=== PATIENT | male | born 1960 | race Caucasian/White ===

== ENCOUNTER 2017-02-12 23:41 | Inpatient (IN) | payer BC ==
--- NOTE | ~2017-02-12 | CN ---
Consultation Report [facility] [address] [place]. [address] NAME: MARGARET GUTIERREZ : 62 STATUS : ADM Baudilio PAT#: [id number] AGE: 56 ADM/REG DATE : 02/13/17 MR#: [id number] REPORT SERV DATE: 02/15/17 DICTATED BY: DIEUDONNE DUBON DATE: 02/15/17 REPORT STATUS : Draft TRANSCRIBED BY: MODL DATE: 02/15/17 INFECTIOUS DISEASE CONSULTATION DATE OF CONSULTATION: REASON FOR REFERRAL: Evaluation and treatment of foot infection. HISTORY OF PRESENT ILLNESS: The patient is a 56-year-old male. He has a history of hypertension, diabetes mellitus, peripheral neuropathy, nonischemic cardiomyopathy, obstructive sleep apnea, atrial fibrillation and other arrhythmias. He has an AICD, he had a firing of it three days ago and came in and was admitted. He was seen by me a year ago with a cellulitis of the right third toe. I was able to express a small amount of fluid from that and culture it, but it only grew coagulase-negative staph and Enterococcus and was on antibiotics at that time. He was treated empirically, got better, but then worsened and was readmitted and treated with intravenous vancomycin, at which point it began to improve. He had no signs of underlying abscess or osteomyelitis. He went home and got two weeks of IV vancomycin and with that, it all resolved. He has hammertoes and has been evaluated by [facility], and plans were made to surgically repair those since that is felt to be the reason for the recurrent episodes of cellulitis. However, arrhythmias, firings of his AICD, and an episode of influenza have all caused that surgery to be delayed and he is now to have another ablation in [place] in two weeks. In the meantime, in the past few days, warmth and redness have begun to appear on the toe and spread back onto the foot as well as the second toe, hence this consult. He denies any recent trauma to it, but he is up walking on it in boots and is on his feet all day in his job, doing [employer] work for the [employer], [place]. PAST MEDICAL HISTORY: Otherwise, unremarkable. MEDICATIONS: As mentioned above. ALLERGIES: NO KNOWN ANTIMICROBIAL ALLERGIES. SOCIAL HISTORY: He is . Work as previously mentioned. Nonsmoker. No history of alcohol or substance abuse. FAMILY HISTORY: Noncontributory. PHYSICAL EXAMINATION: GENERAL: A nontoxic, adult male, in no acute distress. He is alert and oriented x3. VITAL SIGNS: His temperature here has been normal 98.3 at present with a pulse of 56, respirations 20, blood pressure 104/57, weight is 136 kg. HEENT: Sclerae clear. No oral lesions. NECK: Supple. Consultation Report [address] [address] NAME: MARGARET GUTIERREZ : 62 STATUS : ADM Baudilio PAT#: [id number] AGE: 56 ADM/REG DATE : 02/13/17 MR#: [id number] REPORT SERV DATE: 02/15/17 DICTATED BY: DIEUDONNE DUBON DATE: 02/15/17 REPORT STATUS : Draft TRANSCRIBED BY: KENIA DATE: 02/15/17 LUNGS: Clear. HEART: Regular rate and rhythm. ABDOMEN: Soft and nontender. Positive bowel sounds. EXTREMITIES: Without clubbing or cyanosis. His right foot shows a swollen third toe with calluses; on the distal end, a very misshapen nail. I was unable to express any drainage from it. There is mild redness on the adjacent toe medially, but nothing really on the foot. LABORATORY DATA: His white blood cell count when he came in was 11.5, hematocrit 42.8, platelets 203. BUN and creatinine 26 and 1.11.7 IMPRESSION: Recurrent infections of the toe, probably due to the anatomical malformations causing repeated trauma to it. I would be most concerned about staph or strep. RECOMMENDATIONS: 1. Begin intravenous vancomycin. 2. Get an x-ray of the foot. 3. Podiatry has been asked to see him by Dr. Diaz, I agree. 4. Finally, I will follow the patient with you. I appreciate very much your consulting on this patient. NIYA Dieudonne Dubon M.D. / [id number] CC: Nicki Richards Jr., M.D. David Wendt, M.D.
--- NOTE | ~2017-02-12 | DS ---
Discharge Summary [facility] [address] [place]. [address] NAME: MARGARET GUTIERREZ : 62 STATUS : DIS IN PAT#: [id number] AGE: 56 ADM/REG DATE : 02/13/17 MR#: [id number] REPORT SERV DATE: 02/26/17 DICTATED BY: CARLOS CANSECO JR. DATE: 02/25/17 REPORT STATUS : Draft TRANSCRIBED BY: KENIA DATE: 02/25/17 Data Collection from hospitalization DISCHARGE DIAGNOSIS(ES): 1. Sinus tachycardia secondary to hypokalemia. 2. Atrial fibrillation/flutter. 3. Diabetes mellitus. 4. Cardiomyopathy. 5. Obstructive sleep apnea. 6. Chronic kidney disease. 7. History of alpha-1 antitrypsin deficiency. 8. Psoriasis. 9. Obesity. 10.Diabetic retinopathy. 11.Hyperthyroidism. CONSULTATIONS: Bandar Ambrocio M.D. PROCEDURES PERFORMED: None. MEDICATIONS: Eliquis 5 mg twice a day, aspirin 81 mg daily, Bumex 1 mg twice a day, Coreg 25 mg at bedtime, cefadroxil 1 g twice a day, Klonopin 0.5 mg at bedtime, Tikosyn 250 mcg twice a day, Viibryd tab 100 mg twice a day, Pepcid 20 mg daily, Prozac 40 mg daily, NovoLog injection insulin as instructed, Tresiba 75 units subcutaneously at bedtime, Humalog as per sliding scale as instructed, Mag-Ox 400 mg twice a day, Glucophage 1000 mg twice a day, Klor Con 20 mEq four times a day, Crestor 20 mg at bedtime, and Entresto one tablet twice a day. CONDITION AT DISCHARGE: Stable. DISPOSITION: The patient was discharged home on an 1800-calorie low cholesterol, diabetic diet with activities as instructed. He would follow up with Dr. Len Diaz on 02/24/[address] Bandar Aguilera two to three weeks following discharge. HOSPITAL COURSE: This is a 56-year-old man who has a history of nonischemic cardiomyopathy and atrial dysrhythmia. He had an ICD placed for nonischemic cardiomyopathy and had never had a shock until the evening prior to this admission. He had been in his recliner chair when he slumped over and received a shock which proved to be secondary to ventricular tachycardia. He had more rapid ventricular tachycardia when he presented to the emergency room. He was found to be severely hypokalemic with a potassium of 2.7. This was being repleted. He had no further episodes of ventricular tachycardia since then. He also has a history of atrial dysrhythmia and had undergone two attempts at radiofrequency ablation by Dr. Len Diaz. Unfortunately, he continued to have admissions for persistent atrial fibrillation which was highly symptomatic and had required repeated cardioversion. He was scheduled to go to the [facility] in [place] to undergo radiofrequency ablation with Dr. Fito Pierson in the near future. He currently takes Tikosyn for control of his atrial fibrillation. He was admitted to the hospital at this time for further evaluation and treatment. Discharge Summary [address] [address] NAME: MARGARET GUTIERREZ : 62 STATUS : DIS IN PAT#: [id number] AGE: 56 ADM/REG DATE : 02/13/17 MR#: [id number] REPORT SERV DATE: 02/26/17 DICTATED BY: CARLOS CANSECO JR. DATE: 02/25/17 REPORT STATUS : Draft TRANSCRIBED BY: KENIA DATE: 02/25/17 Upon admission, telemetry revealed the patient to be in a sinus rhythm, currently with PVCs. He has severe hypokalemia. Potassium supplementation was given. The implantable cardioverter-defibrillator was functioning appropriately and was interrogated in the emergency room. Tikosyn was continued, anticoagulation was continued, as well as congestive heart failure medications. He has congestive heart failure secondary to dilated cardiomyopathy. He did not appear to be in any overt congestive heart failure at this point in time. On 02/14/2017, he had no ventricular tachycardia overnight. His lungs were clear. He had no edema. Potassium supplementation continued. Tikosyn was decreased. Augmentin was started. He does have a right toe infection. The wound nurse was scheduled to see the patient. On 02/15/2017, he was seen by Dr. Bandar Ambrocio for evaluation and treatment of the foot infection. He had seen the patient about a year previously with cellulitis of the right third toe, a small amount of fluid was able to be expressed from that and cultures had grown only coagulase-negative Staph and enterococcus. He had been on antibiotics at that time. He was treated empirically and got better but then worsened. He had been readmitted and treated with intravenous vancomycin, at which point, he began to improve. He had no sign of underlying abscess or osteomyelitis. He went home and received two weeks of IV vancomycin and this resolved. His belene had been evaluated by [facility] and plans were made to surgically repair that since it was felt to be the reason for the recurrent episodes of cellulitis. However, he had arrhythmias and firings of his AICD and an episode of influenza which had caused that surgery to be delayed. He was now to have another ablation in two weeks. In the meantime, over the past few days, prior to this admission. He had warmth and redness that began to appear on the toe and spread back onto the foot as well as the second toe. He denied any recent trauma to it. He is up walking on it in boots and is on his feet all day doing his job with [employer] work. On admission, his white count was 11.5. Creatinine level was 1.11. Intravenous vancomycin was started. X- ray of the foot was requested. The following day, he had no new symptoms. X-ray of the right foot showed minimal calcaneal spurs. There was minimal osteophyte formation and no evidence of acute right foot abnormality. Discharge planning was performed. He did have an episode of nonsustained ventricular tachycardia that morning. Potassium and magnesium supplementation were continued. Discharge planning continued. On 02/17/2017, he remained afebrile. Creatinine was 1.07. He said he felt fine and toe looks like it had improved. He still has mild cellulitis of the right third greater than fourth toe. Discharge instructions were given. Due to his improved and stable condition, he was discharged home with the above-stated instructions. Information collected by: Liudmila Coffey I submit the above information as my discharge summary. CRISTINE/KENIA Carlos Canseco Jr., M.D. / [id number] CC: Carlos Canseco Jr., M.D. Discharge Summary [address] [place]. [address] NAME: MARGARET GUTIERREZ : 62 STATUS : DIS IN PAT#: [id number] AGE: 56 ADM/REG DATE : 02/13/17 MR#: [id number] REPORT SERV DATE: 02/26/17 DICTATED BY: CARLOS CANSECO JR. DATE: 02/25/17 REPORT STATUS : Draft TRANSCRIBED BY: MODL DATE: 02/25/17 Len Fraser M.D. Bandar Ambrocio M.D.
--- NOTE | ~2017-02-12 | HP ---
History And Physical [facility] [address] [place]. [address] NAME: MARGARET GUTIERREZ : 62 STATUS : ADM Baudilio PAT#: [id number] AGE: 56 ADM/REG DATE : 02/13/17 MR#: [id number] REPORT SERV DATE: 02/13/17 DICTATED BY: NASIR ALBERTS DATE: 02/13/17 REPORT STATUS : Draft TRANSCRIBED BY: MODL DATE: 02/13/17 DATE OF ADMISSION: 02/13/2017 REASON FOR ADMISSION: This is a cardiology admission H and P. This is in regard to ICD with ICD shock for rapid VT. HISTORY OF PRESENT ILLNESS: Mr. Gutierrez is a pleasant 56-year-old gentleman with a history of a nonischemic cardiomyopathy and atrial dysrhythmias. He had an ICD placed for a nonischemic cardiomyopathy and had never had a shock until last evening. He was in his recliner chair. He slumped over and then received a shock, which proved to be secondary to ventricular tachycardia. He had more rapid ventricular tachycardia when he presented to the emergency room. The patient was found to be severely hypokalemic with a potassium of 2.7, and this is being repleted. He has had no further episodes of VT since then. The patient also has a history of atrial dysrhythmia and has undergone two attempts at radiofrequency ablation by Dr. Len Diaz. Unfortunately, he continues to have admissions for persistent atrial fibrillation, which is highly symptomatic and has required repeated cardioversions. The patient is scheduled to go to [facility], [place], to undergo radiofrequency ablation with Dr. Fito Pierson in the near future. He currently takes Tikosyn for control of his atrial fibrillation. PAST MEDICAL HISTORY: Includes: 1. History of atrial fibrillation that is persistent, requiring repeated cardioversions, status post two ablation attempts by Dr. Len Diaz, and the patient takes Tikosyn. He is scheduled to undergo another ablation in [place] in the near future. 2. Nonischemic cardiomyopathy, ejection fraction 30 to 35%, on appropriate medications. The patient has an ICD. 3. Recurrent problems with hypokalemia. 4. Diabetes mellitus. 5. Obstructive sleep apnea. 6. Chronic kidney disease. 7. Alpha-1 antitrypsin deficiency, followed by Dr. Artie Healy from Pulmonary. 8. Psoriasis. 9. Obesity. 10.Diabetic retinopathy. 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 CURRENT MEDICATIONS: Include Eliquis, aspirin, Bumex, carvedilol, clonazepam, Tikosyn 375 mcg p.o. b.i.d., Pepcid, Prozac, insulin, magnesium, metformin, potassium, Crestor, Entresto. FAMILY HISTORY: Noncontributory, negative for premature coronary disease. SOCIAL HISTORY: Negative tobacco or alcohol. REVIEW OF SYSTEMS: History And Physical [address] [address] NAME: MARGARET GUTIERREZ : 62 STATUS : ADM Baudilio PAT#: [id number] AGE: 56 ADM/REG DATE : 02/13/17 MR#: [id number] REPORT SERV DATE: 02/13/17 DICTATED BY: NASIR ALBERTS DATE: 02/13/17 REPORT STATUS : Draft TRANSCRIBED BY: MODKofi DATE: 02/13/17 As noted above. All other systems reviewed and negative. PHYSICAL EXAMINATION: VITAL SIGNS: Heart rate 72, blood pressure 130/70, respirations 16, GENERAL: Well developed, well nourished. HEENT: No icterus. Good dentition. NECK: Supple. No masses or thyromegaly LUNGS: Breathing comfortably. No rales or wheezes. COR: Normal S1, S2. No S3 or S4. No murmurs, clicks, rubs. No JVD ABD: Soft, nondistended, nontender, no hepatosplenomegaly. EXT: No clubbing, cyanosis or edema. Peripheral pulses 2+/=bilaterally. SKIN: Warm and dry. No visible lesions. MS: Chest wall without deformity, no obvious clavicular fractures. NEURO/PSYCH: Oriented X3. No anxiety or depression. IMAGING: EKG was performed while the patient had a run of ventricular tachycardia. I cannot determine the overall the EKG at this point. The telemetry shows the patient to be in sinus rhythm currently with PVCs. LABORATORY VALUES: Notable for severe hypokalemia, potassium 2.7. IMPRESSION: 1. The patient with ventricular tachycardia in the setting of hypokalemia. He also takes Tikosyn for atrial fibrillation. We will replete potassium. Recheck an EKG this morning, especially focusing on QT interval. Continue current medicines for now including the Tikosyn. Continue to monitor. Implantable cardioverter-defibrillator is functioning appropriately and was interrogated in the emergency room. 2. Atrial fibrillation. Continue Tikosyn. As mentioned, the patient is scheduled for ablation in [place] using the rotor mapping system. Continue anticoagulation. 3. Congestive heart failure secondary to dilated cardiomyopathy. Continue current medications. He does not appear to be in any overt congestive heart failure at this point in time. His BNP was only slightly greater than 100, and symptoms and exam do not seem to be consistent with congestive heart failure exacerbation. If the patient is doing well, potassium remains repleted, and no further arrhythmias, we will plan for discharge tomorrow. STACEY/KENIA Nasir Alberts M.D. / [id number]
[2017-02-12 23:32] LABS: BASOPHILS 0.5 %; BASOPHILS ABSOLUTE 0.06 10/3/uL (0.0-0.16); EOSINOPHILS ABSOLUTE 0.23 10/3/uL (0.0-0.53); ER CBC TAT 0 Hrs 05 Mins; HEMATOCRIT 42.8 % (40.0-51.0); HEMOGLOBIN 15.6 g/dL (13.6-17.8); IMMATURE GRANULOCYTES 0.3 %; IMMATURE GRANULOCYTES ABSOLUTE 0.04 10/3/uL (0.0-0.11); LYMPHOCYTES 17.9 %; LYMPHOCYTES ABSOLUTE 2.06 10/3/uL (0.67-4.30); MANUAL DIFF NO %; MEAN CORPUS HGB CONC 36.4 g/dL (32.0-36.0); MEAN CORPUSCULAR VOLUME 85.1 fL (80-100); MEAN PLATELET VOLUME 10.3 fL (9.2-13.0); MONOCYTES 8.9 %; MONOCYTES ABSOLUTE 1.03 10/3/uL (0.21-1.20); NEUTROPHILS 70.4 %; NEUTROPHILS ABSOLUTE 8.09 10/3/uL (2.02-8.40); PLATELET COUNT 203 10/3/uL (150-400); RBC DISTRIBUTION WIDTH 12.6 % (12.0-16.0); RED CELL COUNT 5.03 10/6/uL (4.7-6.1); WHITE BLOOD CELLS 11.5 10/3/uL (4.5-10.5)
[~2017-02-12 23:41] MED LIST: ACET500CAP PO; ADVAIR100 INH; ADVIL PO; ASA5GR PO; ASAB PO; BUM2 PO; CARD30 PO; CORDARONE PO; COREG12 PO; COREG25 PO; COUMADIN7.5 MG PO; COZ25 PO; CRESTOR20 MG PO; DEMA100 PO; DEMA10T PO; DEMA20 PO; DSS PO; DULERA 100 MCG/13 GM INH; ELIQUIS 5 MG TAB5 MG PO; GAS-X80 MG PO; GLUCOPHAGE1000 MG PO; GLUCOV5 PO; GLUCPH PO; HUMALOG SC; HUMULIN SC; JANTOVEN7.5 MG PO; K500 PO; KDUR20 PO; KLONO5 PO; KLOR-CON 1010 MEQ PO; KLOR-CON M2020 MEQ PO; L40 PO; LEVEMFLXPN SC; LEVEMIR SC; LIPITOR10 PO; LIPITOR20 PO; MAGOX4 PO; NOVOLOG SC; NOVOPEN SC; PACERONE100 MG PO; PCET PO; PEP20 PO; PROZAC PO; PROZAC40 MG PO; RAN500 PO; RYTHMOL SR225 MG PO; RYTHMOL225 MG PO; SACU1TAB7 PO; SEPTRA1 TAB PO; SPIRO25 PO; T PO; TAMBOCOR PO; TAPAZOLE10 MG PO; TIKOSYN 250 M250 MCG PO; TIKOSYN125 MCG OR; TIKOSYN250 MCG PO; TRESIBA FL100 UNIT/1 SC; TRESIBA FLEXTOUCH SC; VANCO1P IV; Z5 PO; [UNRECOGNIZED DRUG - MIXTURE] IV
[2017-02-12 23:43] LABS: INTERNATIONAL NORMAL RATI 1.1 UNITS (-); PARTIAL THROMBO TIME 34.3 SEC (22.5-37.2); PROTIME (NOT ORD) 14.5 SEC (12.0-14.5)
[2017-02-12 23:47] LABS: BUN (BLOOD UREA NITROGEN) 29 MG/DL (6-23); CALCIUM, SERUM 8.8 MG/DL (8.5-10.4); CHEST PAIN PROFILE TAT 0 Hrs 20 Mins; CHLORIDE, SERUM 94 MMOL/L (96-112); CO2 (CARBON DIOXIDE) 34 MMOL/L (24-34); CREATININE 1.25 MG/DL (0.70-1.30); GFR AFRICAN AMERICAN 75 ML/MIN (>=60); GFR NON AFRICAN AMERICAN 64 ML/MIN (>=60); GLUCOSE, SERUM 314 MG/DL (60-99); POTASSIUM, SERUM 2.7 MMOL/L (3.5-5.3); SODIUM, SERUM 139 MMOL/L (135-148); TROPONIN I 0.03 NG/ML (<0.05)
[2017-02-13] MEDS ORDERED: KDUR20 PO (02:30)
[2017-02-13] MEDS ORDERED: TIKOSYN125 MCG PO ×2 (02:31→03:48)
[2017-02-13] MEDS ORDERED: PROZAC40 MG PO ×2 (02:31→03:46)
[2017-02-13] MEDS ORDERED: COREG12 PO (02:31)
[2017-02-13] MEDS ORDERED: KLONO5 PO ×2 (02:32→03:49)
[2017-02-13] MEDS ORDERED: CRESTOR20 MG PO ×2 (02:32→03:49)
[2017-02-13] MEDS ORDERED: SACU1TAB7 PO ×2 (02:33→03:52)
[2017-02-13] MEDS ORDERED: ELIQUIS 5 MG TAB5 MG PO ×2 (02:33→03:53)
[2017-02-13] MEDS ORDERED: BUM1 PO ×2 (02:33→03:53)
[2017-02-13] MEDS ORDERED: GLUCOPHAGE1000 MG PO ×2 (02:34→03:54)
[2017-02-13] MEDS ORDERED: TRESIBA FL100 UNIT/1 SC (02:34)
[2017-02-13] MEDS ORDERED: HUMALOG SC ×2 (02:36→03:57)
[2017-02-13] MEDS ORDERED: PEPCID40 MG PO (02:44)
[2017-02-13] MEDS ORDERED: ASAB PO ×2 (02:44→03:59)
[2017-02-13] MEDS ORDERED: MAGOX4 PO ×2 (02:44→04:00)
[2017-02-13] MEDS ORDERED: KLOR-CON M2020 MEQ PO (03:42)
[2017-02-13] MEDS ORDERED: COREG25 PO (03:44)
[2017-02-13] MEDS ORDERED: FORTAMET1000 MG PO (03:54)
[2017-02-13] MEDS ORDERED: TRESIBA FL100 UNIT/1 SQ (03:56)
[2017-02-13] MEDS ORDERED: PEP20 PO (03:59)
[2017-02-13 08:35] LABS: CALCIUM, SERUM 9.2 MG/DL (8.5-10.4); CHLORIDE, SERUM 97 MMOL/L (96-112); CO2 (CARBON DIOXIDE) 34 MMOL/L (24-34); CREATININE 1.17 MG/DL (0.70-1.30); GFR AFRICAN AMERICAN 81 ML/MIN (>=60); GFR NON AFRICAN AMERICAN 70 ML/MIN (>=60); SODIUM, SERUM 139 MMOL/L (135-148)
[2017-02-13 08:36] LABS: BUN (BLOOD UREA NITROGEN) 24 MG/DL (6-23); GLUCOSE, SERUM 250 MG/DL (60-99); POTASSIUM, SERUM 2.9 MMOL/L (3.5-5.3)
[2017-02-13 11:57] LABS: BUN (BLOOD UREA NITROGEN) 22 MG/DL (6-23); CALCIUM, SERUM 9.4 MG/DL (8.5-10.4); CHLORIDE, SERUM 98 MMOL/L (96-112); CO2 (CARBON DIOXIDE) 33 MMOL/L (24-34); CREATININE 1.24 MG/DL (0.70-1.30); GFR AFRICAN AMERICAN 75 ML/MIN (>=60); GFR NON AFRICAN AMERICAN 65 ML/MIN (>=60); GLUCOSE, SERUM 280 MG/DL (60-99); POTASSIUM, SERUM 3.3 MMOL/L (3.5-5.3); SODIUM, SERUM 140 MMOL/L (135-148)
[2017-02-13 15:57] LABS: BUN (BLOOD UREA NITROGEN) 22 MG/DL (6-23); CHLORIDE, SERUM 95 MMOL/L (96-112); CO2 (CARBON DIOXIDE) 33 MMOL/L (24-34); CREATININE 1.28 MG/DL (0.70-1.30); GFR AFRICAN AMERICAN 73 ML/MIN (>=60); GFR NON AFRICAN AMERICAN 63 ML/MIN (>=60); GLUCOSE, SERUM 248 MG/DL (60-99); SODIUM, SERUM 138 MMOL/L (135-148)
[2017-02-13 15:59] LABS: POTASSIUM, SERUM 3.8 MMOL/L (3.5-5.3)
[2017-02-14 04:58] LABS: CALCIUM, SERUM 9.2 MG/DL (8.5-10.4); CHLORIDE, SERUM 94 MMOL/L (96-112); CO2 (CARBON DIOXIDE) 34 MMOL/L (24-34); CREATININE 1.22 MG/DL (0.70-1.30); GFR AFRICAN AMERICAN 77 ML/MIN (>=60); GFR NON AFRICAN AMERICAN 66 ML/MIN (>=60); SODIUM, SERUM 140 MMOL/L (135-148)
[2017-02-14 04:59] LABS: BUN (BLOOD UREA NITROGEN) 28 MG/DL (6-23); GLUCOSE, SERUM 156 MG/DL (60-99)
[2017-02-15 05:17] LABS: BUN (BLOOD UREA NITROGEN) 26 MG/DL (6-23); CALCIUM, SERUM 8.8 MG/DL (8.5-10.4); CHLORIDE, SERUM 99 MMOL/L (96-112); CO2 (CARBON DIOXIDE) 31 MMOL/L (24-34); CREATININE 1.11 MG/DL (0.70-1.30); GFR AFRICAN AMERICAN 86 ML/MIN (>=60); GFR NON AFRICAN AMERICAN 74 ML/MIN (>=60); GLUCOSE, SERUM 125 MG/DL (60-99); POTASSIUM, SERUM 3.2 MMOL/L (3.5-5.3); SODIUM, SERUM 140 MMOL/L (135-148)
[2017-02-16 04:34] LABS: BUN (BLOOD UREA NITROGEN) 22 MG/DL (6-23); CALCIUM, SERUM 8.5 MG/DL (8.5-10.4); CHLORIDE, SERUM 103 MMOL/L (96-112); CO2 (CARBON DIOXIDE) 30 MMOL/L (24-34); CREATININE 1.14 MG/DL (0.70-1.30); GFR AFRICAN AMERICAN 83 ML/MIN (>=60); GFR NON AFRICAN AMERICAN 72 ML/MIN (>=60); GLUCOSE, SERUM 138 MG/DL (60-99); POTASSIUM, SERUM 3.6 MMOL/L (3.5-5.3); SODIUM, SERUM 141 MMOL/L (135-148)
[2017-02-17 05:50] LABS: BUN (BLOOD UREA NITROGEN) 22 MG/DL (6-23); CALCIUM, SERUM 8.6 MG/DL (8.5-10.4); CHLORIDE, SERUM 106 MMOL/L (96-112); CO2 (CARBON DIOXIDE) 26 MMOL/L (24-34); CREATININE 1.07 MG/DL (0.70-1.30); GFR AFRICAN AMERICAN 90 ML/MIN (>=60); GFR NON AFRICAN AMERICAN 78 ML/MIN (>=60); GLUCOSE, SERUM 128 MG/DL (60-99); POTASSIUM, SERUM 4.2 MMOL/L (3.5-5.3); SODIUM, SERUM 141 MMOL/L (135-148)
[2017-02-17] MEDS ORDERED: KLOR-CON M2020 MEQ PO (15:07)
[2017-02-17] MEDS ORDERED: TIKOSYN125 MCG PO (15:09)
[2017-02-17] MEDS ORDERED: VIBRATAB100 MG PO (15:11)
[2017-02-17] MEDS ORDERED: CEFADROXIL1 GM PO (15:11)
== END 2017-02-17 16:00 | disposition home or self-care (01) | DRG 309 ==
LOC: ER 23:41 → CDU1 02-13 01:53 → CDU2 02-13 02:26 → 5NO 02-16 02:50
PROVIDERS: Emergency Medicine; Internal Medicine Cardiovascular Disease; Internal Medicine Clinical Cardiac Electrophysiology
DX: I47.2 Ventricular tachycardia (principal); I42.8 Other cardiomyopathies; E11.22 Type 2 diabetes mellitus with diabetic chronic kidney disease; E88.01 Alpha-1-antitrypsin deficiency; I48.1 Persistent atrial fibrillation; E87.6 Hypokalemia; L03.031 Cellulitis of right toe; N18.9 Chronic kidney disease, unspecified; E11.319 Type 2 diabetes mellitus with unspecified diabetic retinopathy without macular edema; Z95.810 Presence of automatic (implantable) cardiac defibrillator; Z79.82 Long term (current) use of aspirin; Z79.01 Long term (current) use of anticoagulants
CPT/HCPCS: 71010; 73630-RT; 80048; 82962; 83735; 83880; 84132; 84484; 85025; 85610; 85730; 93005; 99285; A9270-GY; J3370

== ENCOUNTER 2017-03-07 15:52 | Inpatient (IN) | payer BC ==
--- NOTE | ~2017-03-07 | HP ---
History And Physical [facility] [address] [place]. [address] NAME: GUILLERMO GUTIERREZ : 62 STATUS : ADM IN [facility]#: [id number] AGE: 56 ADM/REG DATE : 03/07/17 MR#: [id number] REPORT SERV DATE: 03/08/17 DICTATED BY: LUL MILLER DATE: 03/07/17 REPORT STATUS : Draft TRANSCRIBED BY: MODKofi DATE: 03/07/17 DATE OF ADMISSION: 03/07/[address] [facility] NETWORK SECURITY ADMINISTRATOR: Len Diaz M.D. INDICATION: Wide-complex tachycardia, likely consistent with atypical atrial flutter. HISTORY OF PRESENT ILLNESS: Guillermo Gutierrez is a 56-year-old man with previous ablation for atrial fibrillation, dilated cardiomyopathy. He has had issues with atypical atrial flutter and recently went to [place] for an ablation. Ablation was performed middle of last week. He returned home yesterday and presents back to the emergency room this morning in atypical atrial flutter with a ventricular response of 150 beats per minute. The patient's family reports that they had contacted Dr. Diaz, and he wishes for him to have procainamide. The patient notices tachy-palpitations and some shortness of breath with exertion, but did not have shortness of breath at rest. No complaints of angina. No history of bypass grafting or PCI. No syncope. He did have an ICD shock last month. PAST MEDICAL HISTORY: Atrial fibrillation with previous ablation, atypical flutter, nonischemic cardiomyopathy, ejection fraction 30% to 35%, ICD, hypokalemia, diabetes, BRYCE, CKD, alpha-1 antitrypsin, psoriasis, obesity, diabetic retinopathy, and amiodarone-induced . MEDICATIONS: Listed in [facility] medicine form and reviewed. ALLERGIES: LISTED IN [facility] MEDICINE FORM AND REVIEWED. LABORATORY DATA: Sodium 140, potassium 3.9, creatinine 1.02, troponin 0.20 - likely related to recent ablation, INR 1.3, hemoglobin is 14.7, and glucose 210. ECG is wide-complex tachycardia with a left bundle-branch block conduction pattern. Rate of 148 beats per minute. PHYSICAL EXAMINATION: VITAL SIGNS: Blood pressure 114/77, pulse 149, oxygen saturation 96% on room air. GENERAL: Appears stated age, no distress. EYES: Sclerae anicteric, no arcus senilis. MOUTH: Oral mucosa moist, lips acyanotic. NECK: Jugular venous pressure normal, no carotid bruits. LUNGS: Clear to auscultation bilaterally, normal inspiratory effort. CARDIAC: Irregular rhythm. Tachycardic. ABDOMEN: Soft, nondistended, nontender. EXTREMITIES: No edema. SKIN: Warm and dry. NEURO/PSYCH: Alert and oriented, nonfocal, mood appropriate. History And Physical [address] [address] NAME: GUILLERMO GUTIERREZ : 62 STATUS : ADM IN [facility]#: [id number] AGE: 56 ADM/REG DATE : 03/07/17 MR#: [id number] REPORT SERV DATE: 03/08/17 DICTATED BY: LUL MILLER DATE: 03/07/17 REPORT STATUS : Draft TRANSCRIBED BY: KENIA DATE: 03/07/17 IMPRESSION: 1. Wide-complex tachycardia, likely atypical atrial flutter with aberrant conduction. 2. Nonischemic cardiomyopathy in ICD. 3. Diabetes. 4. Obstructive sleep apnea. 5. Chronic kidney disease. 6. History of amiodarone-induced . PLAN: Admit. IV procainamide 500 mg to be followed by 2 mg/minute. N.p.o. for possible cardioversion in the a.m. Discussed with the patient and . All questions answered. SEBASTIÁN/KENIA Lul Miller M.D. / [id number] CC: Nicki Fernandez M.D.
--- NOTE | ~2017-03-07 | OP ---
Record Of Operation [facility] [address] [place]. [address] NAME: MARGARET GUTIERREZ : 62 STATUS : ADM IN PAT#: [id number] AGE: 56 ADM/REG DATE : 03/07/17 MR#: [id number] REPORT SERV DATE: 03/08/17 DICTATED BY: JANES BINGHAM DATE: 03/08/17 REPORT STATUS : Draft TRANSCRIBED BY: MODKofi DATE: 03/08/17 DATE OF PROCEDURE: 03/08/2017 CARDIOVERSION REPORT INDICATIONS: A 56-year-old male with recurrent atrial flutter/atrial fibrillation. He has a history of nonischemic cardiomyopathy with an ICD in situ. He has been on chronic therapeutic anticoagulation with Eliquis. He did undergo an atrial fibrillation ablation approximately two weeks ago, on medical therapy. Informed consent was obtained, signed, and on the chart prior to proceeding. A time-out was performed and sedation was per Anesthesia. CARDIOVERSION: A single synchronized 200 joule biphasic energy shock was delivered with external pads in the anterior-posterior position. Initial postprocedure rhythm was demand ventricular pacing with occasional junctional escape complexes, subsequent conversion to sinus bradycardia at 45 beats per minute. The single chamber ICD was interrogated both preprocedure which demonstrated an irregular rhythm with intermittent demand ventricular pacing and confirmed postprocedure, a regular rhythm with intrinsic conduction. COMPLICATIONS: None. CONCLUSION: Successful cardioversion from atrial fibrillation to sinus rhythm. SANDI/KENIA Janes Bingham M.D. / [id number] CC: Nicki Fernandez M.D.
[2017-03-07 15:16] LABS: BASOPHILS 0.4 %; BASOPHILS ABSOLUTE 0.04 10/3/uL (0.0-0.16); EOSINOPHILS 2.5 %; EOSINOPHILS ABSOLUTE 0.26 10/3/uL (0.0-0.53); ER CBC TAT 0 Hrs 09 Mins; HEMATOCRIT 42.5 % (40.0-51.0); HEMOGLOBIN 14.7 g/dL (13.6-17.8); IMMATURE GRANULOCYTES 0.3 %; IMMATURE GRANULOCYTES ABSOLUTE 0.03 10/3/uL (0.0-0.11); LYMPHOCYTES 22.9 %; LYMPHOCYTES ABSOLUTE 2.34 10/3/uL (0.67-4.30); MANUAL DIFF NO %; MEAN CORPUS HGB CONC 34.6 g/dL (32.0-36.0); MEAN CORPUSCULAR HEMOGLOB 29.9 pg (26.0-34.0); MEAN CORPUSCULAR VOLUME 86.4 fL (80-100); MEAN PLATELET VOLUME 10.8 fL (9.2-13.0); MONOCYTES 10.2 %; MONOCYTES ABSOLUTE 1.04 10/3/uL (0.21-1.20); NEUTROPHILS 63.7 %; PLATELET COUNT 213 10/3/uL (150-400); RBC DISTRIBUTION WIDTH 12.7 % (12.0-16.0); RED CELL COUNT 4.92 10/6/uL (4.7-6.1); WHITE BLOOD CELLS 10.2 10/3/uL (4.5-10.5)
[2017-03-07 15:23] LABS: INTERNATIONAL NORMAL RATI 1.3 UNITS (-); PARTIAL THROMBO TIME 33.2 SEC (22.5-37.2); PROTIME (NOT ORD) 16.4 SEC (12.0-14.5)
[2017-03-07 15:33] LABS: BUN (BLOOD UREA NITROGEN) 15 MG/DL (6-23); CALCIUM, SERUM 8.7 MG/DL (8.5-10.4); CHLORIDE, SERUM 101 MMOL/L (96-112); CO2 (CARBON DIOXIDE) 30 MMOL/L (24-34); CREATININE 1.02 MG/DL (0.70-1.30); GFR AFRICAN AMERICAN 95 ML/MIN (>=60); GFR NON AFRICAN AMERICAN 82 ML/MIN (>=60); GLUCOSE, SERUM 210 MG/DL (60-99); POTASSIUM, SERUM 3.9 MMOL/L (3.5-5.3); SODIUM, SERUM 140 MMOL/L (135-148)
[2017-03-07 15:34] LABS: CHEST PAIN PROFILE TAT 0 Hrs 27 Mins; TROPONIN I 0.21 NG/ML (<0.05)
[~2017-03-07 15:52] MED LIST changes: +BUM1 PO; +CEFADROXIL1 GM PO; +FORTAMET1000 MG PO; +PEPCID40 MG PO; +TIKOSYN125 MCG PO; +TRESIBA FL100 UNIT/1 SQ; +VIBRATAB100 MG PO
[2017-03-07] MEDS ORDERED: PROAIR HFA INH (16:16)
[2017-03-07] MEDS ORDERED: Z5 PO (16:17)
[2017-03-07] MEDS ORDERED: KLOR-CON M2020 MEQ PO (16:18)
[2017-03-08 05:02] LABS: BASOPHILS 0.5 %; BASOPHILS ABSOLUTE 0.05 10/3/uL (0.0-0.16); EOSINOPHILS 2.5 %; EOSINOPHILS ABSOLUTE 0.25 10/3/uL (0.0-0.53); HEMATOCRIT 39.7 % (40.0-51.0); HEMOGLOBIN 13.4 g/dL (13.6-17.8); IMMATURE GRANULOCYTES 0.3 %; IMMATURE GRANULOCYTES ABSOLUTE 0.03 10/3/uL (0.0-0.11); LYMPHOCYTES 21.3 %; LYMPHOCYTES ABSOLUTE 2.12 10/3/uL (0.67-4.30); MEAN CORPUS HGB CONC 33.8 g/dL (32.0-36.0); MEAN CORPUSCULAR HEMOGLOB 29.3 pg (26.0-34.0); MEAN CORPUSCULAR VOLUME 86.9 fL (80-100); MEAN PLATELET VOLUME 10.4 fL (9.2-13.0); NEUTROPHILS 62.4 %; NEUTROPHILS ABSOLUTE 6.22 10/3/uL (2.02-8.40); PLATELET COUNT 197 10/3/uL (150-400); RBC DISTRIBUTION WIDTH 13.2 % (12.0-16.0); RED CELL COUNT 4.57 10/6/uL (4.7-6.1)
[2017-03-08 05:13] LABS: BUN (BLOOD UREA NITROGEN) 15 MG/DL (6-23); CALCIUM, SERUM 8.6 MG/DL (8.5-10.4); CHLORIDE, SERUM 101 MMOL/L (96-112); CO2 (CARBON DIOXIDE) 32 MMOL/L (24-34); CREATININE 1.11 MG/DL (0.70-1.30); GFR AFRICAN AMERICAN 86 ML/MIN (>=60); GFR NON AFRICAN AMERICAN 74 ML/MIN (>=60); GLUCOSE, SERUM 187 MG/DL (60-99); POTASSIUM, SERUM 3.8 MMOL/L (3.5-5.3); SODIUM, SERUM 141 MMOL/L (135-148)
[2017-03-08 05:14] LABS: MANUAL DIFF NO %
[2017-03-09 05:47] LABS: BUN (BLOOD UREA NITROGEN) 17 MG/DL (6-23); CALCIUM, SERUM 8.9 MG/DL (8.5-10.4); CHLORIDE, SERUM 100 MMOL/L (96-112); CO2 (CARBON DIOXIDE) 31 MMOL/L (24-34); CREATININE 1.39 MG/DL (0.70-1.30); GFR AFRICAN AMERICAN 66 ML/MIN (>=60); GFR NON AFRICAN AMERICAN 57 ML/MIN (>=60); GLUCOSE, SERUM 197 MG/DL (60-99); POTASSIUM, SERUM 3.6 MMOL/L (3.5-5.3); SODIUM, SERUM 141 MMOL/L (135-148)
[2017-03-10 06:27] LABS: NAPA 1.4 ug/mL (6.0-20.0); PROCAINAMIDE 2.1 ug/mL (4.0-10.0)
[2017-03-10 07:06] LABS: BUN (BLOOD UREA NITROGEN) 23 MG/DL (6-23); CALCIUM, SERUM 9.1 MG/DL (8.5-10.4); CHLORIDE, SERUM 100 MMOL/L (96-112); CO2 (CARBON DIOXIDE) 32 MMOL/L (24-34); CREATININE 1.37 MG/DL (0.70-1.30); GFR AFRICAN AMERICAN 67 ML/MIN (>=60); GFR NON AFRICAN AMERICAN 58 ML/MIN (>=60); GLUCOSE, SERUM 170 MG/DL (60-99); POTASSIUM, SERUM 4.1 MMOL/L (3.5-5.3); SODIUM, SERUM 140 MMOL/L (135-148)
[2017-03-11 06:32] LABS: BUN (BLOOD UREA NITROGEN) 26 MG/DL (6-23); CHLORIDE, SERUM 102 MMOL/L (96-112); CO2 (CARBON DIOXIDE) 29 MMOL/L (24-34); CREATININE 1.41 MG/DL (0.70-1.30); GFR AFRICAN AMERICAN 65 ML/MIN (>=60); GFR NON AFRICAN AMERICAN 56 ML/MIN (>=60); GLUCOSE, SERUM 165 MG/DL (60-99); POTASSIUM, SERUM 4.1 MMOL/L (3.5-5.3); SODIUM, SERUM 140 MMOL/L (135-148)
[2017-03-11] MEDS ORDERED: DEMA100 PO (17:37)
[2017-03-11] MEDS ORDERED: JARDI10T PO (17:38)
[2017-03-11] MEDS ORDERED: RAN500 PO (17:38)
== END 2017-03-11 18:35 | disposition home or self-care (01) | DRG 310 ==
LOC: ER 15:52 → 5NO 17:27
PROVIDERS: Emergency Medicine; Internal Medicine Cardiovascular Disease; Internal Medicine Clinical Cardiac Electrophysiology
PROC: 5A2204Z Restoration of Cardiac Rhythm, Single (ICD-10-PCS; principal; 2017-03-08)
PROC: 4B02XTZ Measurement of Cardiac Defibrillator, External Approach (ICD-10-PCS; 2017-03-08)
DX: I48.4 Atypical atrial flutter (principal); I42.9 Cardiomyopathy, unspecified; E11.22 Type 2 diabetes mellitus with diabetic chronic kidney disease; G47.33 Obstructive sleep apnea (adult) (pediatric); Z95.810 Presence of automatic (implantable) cardiac defibrillator; N18.3 Chronic kidney disease, stage 3 (moderate); Z79.84 Long term (current) use of oral hypoglycemic drugs; Z79.01 Long term (current) use of anticoagulants; E11.319 Type 2 diabetes mellitus with unspecified diabetic retinopathy without macular edema; E66.9 Obesity, unspecified; Z68.39 Body mass index [BMI] 39.0-39.9, adult; Z99.81 Dependence on supplemental oxygen
CPT/HCPCS: 71010; 80048; 80192; 82962; 83735; 84484; 85025; 85610; 85730; 92960; 93005; 96365; 99291; A9270-GY; C8924; C8929; J1160; J2690; Q9957

== ENCOUNTER 2017-03-17 20:07 | Inpatient (IN) | payer BC ==
--- NOTE | ~2017-03-17 | OP ---
Record Of Operation [facility] [address] [place] [address] NAME: MARGARET GUTIERREZ : 62 STATUS : ADM IN PAT#: [id number] AGE: 56 ADM/REG DATE : 03/17/17 MR#: [id number] REPORT SERV DATE: 03/18/17 DICTATED BY: RICKY TODD DATE: 03/18/17 REPORT STATUS : Draft TRANSCRIBED BY: MODL DATE: 03/18/17 DATE OF PROCEDURE: 03/18/2017 PROCEDURE INDICATION: Atrial flutter with rapid ventricular rate. PROCEDURE DESCRIPTION: All questions were answered. An informed consent was obtained. Anesthesia administered sedation. Upon successful sedation, the patient was cardioverted with 200 joules, synchronized x1. The patient was successfully converted to sinus bradycardia at 55 beats per minute. There were no complications from this procedure. Family was updated by me personally. SASHA/KENIA Ricky Todd MD / [id number] CC: Nicki Fernandez M.D.
--- NOTE | ~2017-03-17 | HP ---
History And Physical [place] [id number] [facility] [place]. [address] NAME: MARGARET GUTIERREZ : 62 STATUS : ADM IN PAT#: [id number] AGE: 56 ADM/REG DATE : 03/17/17 MR#: [id number] REPORT SERV DATE: 03/18/17 DICTATED BY: LIZANDRO BOSS DATE: 03/18/17 REPORT STATUS : Draft TRANSCRIBED BY: MODKofi DATE: 03/18/17 DATE OF ADMISSION: 03/17/2017 REASON FOR ADMISSION: Atrial fibrillation/flutter with rapid ventricular response. HISTORY OF PRESENT ILLNESS: The patient is a 56-year-old white male with a history of recurrent atrial arrhythmia, status post several ablations, most recently at the [facility] in [place]. He had felt fatigued for the last couple of days and yesterday at 4:30 p.m., noted that his heart started racing again. Vital signs at home showed rates up to 183 beats per minute with a decrease in blood pressure after Cardizem in the ER. He is intolerant to amiodarone. He had an ICD shock three weeks ago due to his rapid heart rate. He is presently resting comfortably with the heart rate in the 150 beat per minute range. CURRENT HOME MEDICATIONS: Albuterol MDI inhaler, apixaban 5 b.i.d., aspirin 81 a day, carvedilol 12.5 b.i.d., clonazepam 0.5 per day, Dofetilide 125 b.i.d., empagliflozin 10 per day, famotidine 40 q.a.m., Entresto 49/51 b.i.d., torsemide 100 per day, fluoxetine 40 a day, insulin as directed, magnesium 400 b.i.d., metformin 1000 b.i.d., metolazone 5 per day, potassium 40 three times a day, Ranexa 500 b.i.d., and Crestor 20 at h.s. ALLERGIES OR INTOLERANCES: Amiodarone (AIT type 2 toxicity). SOCIAL HISTORY: Negative for alcohol or tobacco use. FAMILY HISTORY: Negative for coronary artery disease at a young age. PAST MEDICAL HISTORY/REVIEW OF SYSTEMS: Positive for nonsustained ventricular tachycardia and nonischemic cardiomyopathy, his last EF was 35% to 40%. He has atherosclerotic coronary disease by CT scan, but has not required intervention. He has hyperlipidemia, hypertension, diabetes, and class 3 chronic kidney disease. He does have underlying sleep apnea, alpha-1 antitrypsin deficiency, and psoriasis. PHYSICAL EXAMINATION: VITAL SIGNS: 56-year-old white male with blood pressure on admission 129/79, pulse 138, respirations 18. SKIN: No xanthelasmas. HEENT: He is normocephalic. There is no pallor. Sclerae are white. NECK: JVD is not elevated. CHEST: No crackles. CARDIAC: With a summation gallop. No murmurs. ABDOMEN: Soft and is without tenderness. EXTREMITIES: Without edema. No clubbing. NEUROLOGIC: No focal deficits. LABORATORY DATA: ECG shows a wide-complex rhythm at a rate of 150 beats per minute. History And Physical [address] [address] NAME: MARGARET GUTIERREZ : 62 STATUS : ADM IN [facility]#: [id number] AGE: 56 ADM/REG DATE : 03/17/17 MR#: [id number] REPORT SERV DATE: 03/18/17 DICTATED BY: LIZANDRO BOSS DATE: 03/18/17 REPORT STATUS : Draft TRANSCRIBED BY: MODL DATE: 03/18/17 Baseline ECG shows sinus bradycardia with a left bundle-branch block configuration. PLAN: He will be admitted. We will plan cardioversion in the next available opportunity. Note recent potassium 3.9, magnesium 2.4, troponin 0.03. DW/MODL Lizandro Boss M.D. / [id number] CC: Nicki Fernandez M.D. [facility]
[~2017-03-17 20:07] MED LIST changes: +JARDI10T PO; +PROAIR HFA INH
[2017-03-17 20:48] LABS: BASOPHILS 0.6 %; BASOPHILS ABSOLUTE 0.06 10/3/uL (0.0-0.16); EOSINOPHILS 3.1 %; EOSINOPHILS ABSOLUTE 0.33 10/3/uL (0.0-0.53); ER CBC TAT 0 Hrs 07 Mins; HEMATOCRIT 41.8 % (40.0-51.0); HEMOGLOBIN 14.6 g/dL (13.6-17.8); IMMATURE GRANULOCYTES 0.6 %; IMMATURE GRANULOCYTES ABSOLUTE 0.06 10/3/uL (0.0-0.11); LYMPHOCYTES 25.5 %; LYMPHOCYTES ABSOLUTE 2.73 10/3/uL (0.67-4.30); MEAN CORPUS HGB CONC 34.9 g/dL (32.0-36.0); MEAN CORPUSCULAR VOLUME 85.8 fL (80-100); MEAN PLATELET VOLUME 10.1 fL (9.2-13.0); MONOCYTES 8.7 %; MONOCYTES ABSOLUTE 0.93 10/3/uL (0.21-1.20); NEUTROPHILS 61.5 %; PLATELET COUNT 205 10/3/uL (150-400); RBC DISTRIBUTION WIDTH 13.4 % (12.0-16.0); RED CELL COUNT 4.87 10/6/uL (4.7-6.1); WHITE BLOOD CELLS 10.7 10/3/uL (4.5-10.5)
[2017-03-17 20:49] LABS: MANUAL DIFF NO %
[2017-03-17 20:56] LABS: INTERNATIONAL NORMAL RATI 1.1 UNITS (-); PARTIAL THROMBO TIME 35.4 SEC (22.5-37.2); PROTIME (NOT ORD) 14.5 SEC (12.0-14.5)
[2017-03-17 21:05] LABS: BUN (BLOOD UREA NITROGEN) 22 MG/DL (6-23); CALCIUM, SERUM 8.5 MG/DL (8.5-10.4); CHEST PAIN PROFILE TAT 0 Hrs 24 Mins; CHLORIDE, SERUM 101 MMOL/L (96-112); CO2 (CARBON DIOXIDE) 27 MMOL/L (24-34); GFR AFRICAN AMERICAN 55 ML/MIN (>=60); GFR NON AFRICAN AMERICAN 48 ML/MIN (>=60); GLUCOSE, SERUM 193 MG/DL (60-99); POTASSIUM, SERUM 3.9 MMOL/L (3.5-5.3); SODIUM, SERUM 139 MMOL/L (135-148); TROPONIN I 0.03 NG/ML (<0.05)
[2017-03-17] MEDS ORDERED: ELIQUIS 5 MG TAB5 MG PO (22:24)
[2017-03-17] MEDS ORDERED: PROAIR HFA INH (22:24)
[2017-03-17] MEDS ORDERED: COREG12 PO (22:25)
[2017-03-17] MEDS ORDERED: ASAB PO (22:25)
[2017-03-17] MEDS ORDERED: KLONO5 PO (22:26)
[2017-03-17] MEDS ORDERED: JARDI10T PO (22:27)
[2017-03-17] MEDS ORDERED: TIKOSYN125 MCG PO (22:27)
[2017-03-17] MEDS ORDERED: PEPCID40 MG PO (22:27)
[2017-03-17] MEDS ORDERED: TRESIBA FL100 UNIT/1 SC (22:29)
[2017-03-17] MEDS ORDERED: PROZAC40 MG PO (22:29)
[2017-03-17] MEDS ORDERED: HUMALOG SC (22:30)
[2017-03-17] MEDS ORDERED: MAGOX4 PO (22:31)
[2017-03-17] MEDS ORDERED: GLUCOPHAGE1000 MG PO (22:31)
[2017-03-17] MEDS ORDERED: Z5 PO (22:31)
[2017-03-17] MEDS ORDERED: KLOR-CON M2020 MEQ PO (22:34)
[2017-03-17] MEDS ORDERED: SACU1TAB7 PO (22:35)
[2017-03-17] MEDS ORDERED: RAN500 PO (22:35)
[2017-03-17] MEDS ORDERED: CRESTOR20 MG PO (22:35)
[2017-03-17] MEDS ORDERED: DEMA100 PO ×2 (22:37)
[2017-03-18 12:40] LABS: BASOPHILS 0.8 %; BASOPHILS ABSOLUTE 0.07 10/3/uL (0.0-0.16); EOSINOPHILS ABSOLUTE 0.28 10/3/uL (0.0-0.53); HEMOGLOBIN 15.5 g/dL (13.6-17.8); IMMATURE GRANULOCYTES 0.2 %; IMMATURE GRANULOCYTES ABSOLUTE 0.02 10/3/uL (0.0-0.11); LYMPHOCYTES 19.9 %; LYMPHOCYTES ABSOLUTE 1.85 10/3/uL (0.67-4.30); MEAN CORPUS HGB CONC 34.4 g/dL (32.0-36.0); MEAN PLATELET VOLUME 10.4 fL (9.2-13.0); MONOCYTES ABSOLUTE 1.02 10/3/uL (0.21-1.20); NEUTROPHILS 65.1 %; NEUTROPHILS ABSOLUTE 6.04 10/3/uL (2.02-8.40); PLATELET COUNT 220 10/3/uL (150-400); RBC DISTRIBUTION WIDTH 13.7 % (12.0-16.0); RED CELL COUNT 5.17 10/6/uL (4.7-6.1); WHITE BLOOD CELLS 9.3 10/3/uL (4.5-10.5)
[2017-03-18 12:41] LABS: MANUAL DIFF NO %
[2017-03-18 12:46] LABS: INTERNATIONAL NORMAL RATI 1.3 UNITS (-); PROTIME (NOT ORD) 16.5 SEC (12.0-14.5)
[2017-03-18 12:51] LABS: BUN (BLOOD UREA NITROGEN) 21 MG/DL (6-23); CALCIUM, SERUM 8.7 MG/DL (8.5-10.4); CHLORIDE, SERUM 104 MMOL/L (96-112); CO2 (CARBON DIOXIDE) 31 MMOL/L (24-34); CREATININE 1.66 MG/DL (0.70-1.30); GFR AFRICAN AMERICAN 53 ML/MIN (>=60); GFR NON AFRICAN AMERICAN 46 ML/MIN (>=60); GLUCOSE, SERUM 218 MG/DL (60-99); POTASSIUM, SERUM 4.4 MMOL/L (3.5-5.3); SODIUM, SERUM 141 MMOL/L (135-148)
== END 2017-03-19 19:25 | disposition home or self-care (01) | DRG 309 ==
LOC: ER 20:07 → 6NO 22:35
PROVIDERS: Hospitalist; Internal Medicine Clinical Cardiac Electrophysiology
PROC: 5A2204Z Restoration of Cardiac Rhythm, Single (ICD-10-PCS; principal; 2017-03-18)
DX: I48.92 Unspecified atrial flutter (principal); I13.0 Hypertensive heart and chronic kidney disease with heart failure and stage 1 through stage 4 chronic kidney disease, or unspecified chronic kidney disease; I47.2 Ventricular tachycardia; I42.9 Cardiomyopathy, unspecified; E11.22 Type 2 diabetes mellitus with diabetic chronic kidney disease; E88.01 Alpha-1-antitrypsin deficiency; I50.9 Heart failure, unspecified; I48.91 Unspecified atrial fibrillation; I27.2 Other secondary pulmonary hypertension; L40.9 Psoriasis, unspecified; I25.10 Atherosclerotic heart disease of native coronary artery without angina pectoris; I44.7 Left bundle-branch block, unspecified; G47.33 Obstructive sleep apnea (adult) (pediatric); N18.3 Chronic kidney disease, stage 3 (moderate); Z95.810 Presence of automatic (implantable) cardiac defibrillator
CPT/HCPCS: 71010; 71020; 80048; 82962; 83735; 84484; 85025; 85610; 85730; 92960; 93005; 96365; 99291; A9270-GY

== ENCOUNTER 2017-04-01 13:54 | Observation (INO) | payer BC ==
--- NOTE | ~2017-04-01 | CN ---
Consultation Report [facility] [address] [place]. [address] NAME: MARGARET GUTIERREZ : 62 STATUS : ADM Baudilio PAT#: [id number] AGE: 56 ADM/REG DATE : 04/01/17 MR#: [id number] REPORT SERV DATE: 04/02/17 DICTATED BY: DOV ECHOLS DATE: 04/02/17 REPORT STATUS : Draft TRANSCRIBED BY: MODL DATE: 04/02/17 NEPHROLOGY CONSULTATION DATE OF CONSULTATION: HISTORY OF PRESENT ILLNESS: Mr. 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 He has had an AICD placed in 01/2015 for V-tach, atrial fib and flutter with at least two ablations, on Entresto and diuretics with anticoagulation with Eliquis. The last ablation was done at [place], [place]. He has a history of hyperlipidemia, on Crestor; hypertension; diabetes mellitus type 2 with neuropathy, nephropathy, retinopathy; obstructive sleep apnea, on CPAP; pulmonary hypertension, well documented and followed by Dr. Healy, blood pressure in the right ventricle was 75/32 in the past. He has alpha-1 antitrypsin deficiency, psoriasis, obesity, and chronic kidney disease stage 3 with baseline creatinine roughly 1.4 to 1.6, creatinine clearance 50 mL a minute, this was in March of this last year. I am consulted now for acute kidney injury, appears to be mostly prerenal. Went to see Dr. Diaz two weeks ago after ablation in [place]. He had accumulated quite a bit of fluid and diuretics were increased, both torsemide and metolazone. He lost 10 pounds quickly, became lightheaded, potassium bottomed out, and his creatinine went from 1.4 to 2.5. No signs of infection. Denied any nonsteroidal anti-inflammatory use and felt better lying down than it is standing up. PHYSICAL EXAMINATION: VITAL SIGNS: Blood pressure today is 116/63, heart rate of 59, respirations 19, temperature 98 degrees. GENERAL: Alert, cooperative, in no acute distress. Good historian. Ambulated to the bathroom to urinate and give me a urine sample. HEENT: Unremarkable. NECK: Supple. CHEST: Clear. CARDIOVASCULAR: Without murmur, gallops, or rubs. Good respiratory effort and good pulses in all four extremities. ABDOMEN: Obese, benign. Bowel sounds are present. Nontender. EXTREMITIES: 1+ edema in both lower extremities, much improved from admission, he says, but he still feels distended in his abdomen. SKIN: No rash. LYMPHATICS: No lymphadenopathy. NEUROLOGIC: Nonfocal neurological examination. Oriented x3. Cranial nerves 2 through 12 intact. SOCIAL HISTORY: No tobacco. No alcohol. No drugs. He is . FAMILY HISTORY: Positive for cancer of bile duct in his father ended up with surgeries. His Consultation Report [address] [place]. [address] NAME: MARGARET GUTIERREZ : 62 STATUS : ADM Baudilio PAT#: [id number] AGE: 56 ADM/REG DATE : 04/01/17 MR#: [id number] REPORT SERV DATE: 04/02/17 DICTATED BY: DOV ECHOLS DATE: 04/02/17 REPORT STATUS : Draft TRANSCRIBED BY: KENIA DATE: 04/02/17 father also had diabetes, no chronic kidney disease, and his mother has atrial fibrillation, which developed at age 80. ALLERGIES: HE HAS AN ALLERGY TO AMIODARONE. HOME MEDICATIONS: ProAir, Eliquis, aspirin, Coreg, Klonopin, Tikosyn, Jardiance, Pepcid, Prozac, Tresiba insulin, Humalog, magnesium oxide, Glucophage, Zaroxolyn, Klor-Con, Ranexa, Crestor, Entresto, Demadex. LABORATORY DATA: Shows sodium 135; potassium 3.1; chloride 91; CO2 of 33; BUN of 48; creatinine 2.06, but creatinine was 2.5 yesterday and 1.66 in February; fasting blood sugar 157; calcium 9.2 with an albumin of 3.9; magnesium 2.8; phosphorus 4.6. No CBC done, last CBC was in February, white count of 9.3, hemoglobin 15, hematocrit 45, platelet count 228,000. Urinalysis pending. ASSESSMENT: 1. Acute kidney injury, most likely related to decreased volume in a patient with severe pulmonary hypertension. No signs of proteinuria on urinalysis in the past, we will recheck. Baseline creatinine 1.4 when stable. 2. Chronic kidney disease stage 3, thought to be secondary to poor perfusion from cardiomyopathy and medications. 3. Diabetes mellitus type 2 with some retinopathy well documented; type 2 diabetes mellitus with long use of insulin. 4. Pulmonary hypertension with obstructive sleep apnea, on CPAP, which goes along with his obesity. Needs a high preload to fill the right ventricle. 5. Alpha-1 antitrypsin deficiency. 6. Hyperlipidemia. 7. Atrial fibrillation/flutter, status post ablations, currently in normal sinus rhythm. PLAN: 1. Hold diuretics. Replace potassium (the last time his potassium was low, AICD went off). 2. Urinalysis, ultrasound of the kidneys and follow. I have stopped his scheduled diuretics. I have stopped his scheduled potassium and give a sliding scale electrolyte protocol q.6 hours and then resume his diuretics once his potassium is improved and he is asymptomatic. On discharge, will need to be on diuretics, this will be determined at the time of discharge. ASHLYN/KENIA Dov Echols M.D. Consultation Report [address] [address] NAME: MARGARET GUTIERREZ : 62 STATUS : ADM Baudilio PAT#: [id number] AGE: 56 ADM/REG DATE : 04/01/17 MR#: [id number] REPORT SERV DATE: 04/02/17 DICTATED BY: DOV ECHOLS DATE: 04/02/17 REPORT STATUS : Draft TRANSCRIBED BY: KENIA DATE: 04/02/17 / [id number] CC: Len Diaz M.D.
[2017-04-02 05:26] LABS: ALBUMIN 3.9 G/DL (3.5-5.0); CALCIUM, SERUM 9.2 MG/DL (8.5-10.4); CHLORIDE, SERUM 91 MMOL/L (96-112); CO2 (CARBON DIOXIDE) 33 MMOL/L (24-34); CREATININE 2.06 MG/DL (0.70-1.30); GFR AFRICAN AMERICAN 41 ML/MIN (>=60); GFR NON AFRICAN AMERICAN 35 ML/MIN (>=60); SODIUM, SERUM 135 MMOL/L (135-148)
[2017-04-02 05:28] LABS: BUN (BLOOD UREA NITROGEN) 48 MG/DL (6-23); GLUCOSE, SERUM 157 MG/DL (60-99); PHOSPHORUS, SERUM 4.6 MG/DL (2.5-4.5); POTASSIUM, SERUM 2.8 MMOL/L (3.5-5.3)
[2017-04-02 11:20] LABS: ASCORBIC ACID (UR NOT ORDER) NEG (NEG); BILIRUBIN, URINE NEGATIVE (NEG); KETONE, URINE NEGATIVE (NEG); LEUKOCYTE ESTERASE(NOT OR NEG (NEG); WBC (NOT ORDERED) (RFLEX) 1 (0-5)
[2017-04-02 17:51] LABS: ALBUMIN 4.1 G/DL (3.5-5.0); CALCIUM, SERUM 9.3 MG/DL (8.5-10.4); CHLORIDE, SERUM 95 MMOL/L (96-112); CO2 (CARBON DIOXIDE) 34 MMOL/L (24-34); CREATININE 1.77 MG/DL (0.70-1.30); GFR AFRICAN AMERICAN 49 ML/MIN (>=60); GFR NON AFRICAN AMERICAN 42 ML/MIN (>=60); GLUCOSE, SERUM 173 MG/DL (60-99); POTASSIUM, SERUM 3.6 MMOL/L (3.5-5.3); SODIUM, SERUM 137 MMOL/L (135-148)
[2017-04-02 17:52] LABS: BUN (BLOOD UREA NITROGEN) 43 MG/DL (6-23); PHOSPHORUS, SERUM 2.8 MG/DL (2.5-4.5)
[2017-04-02 23:32] LABS: BUN (BLOOD UREA NITROGEN) 40 MG/DL (6-23); CALCIUM, SERUM 9.4 MG/DL (8.5-10.4); CHLORIDE, SERUM 93 MMOL/L (96-112); CO2 (CARBON DIOXIDE) 37 MMOL/L (24-34); CREATININE 1.62 MG/DL (0.70-1.30); GFR AFRICAN AMERICAN 55 ML/MIN (>=60); GFR NON AFRICAN AMERICAN 47 ML/MIN (>=60); GLUCOSE, SERUM 188 MG/DL (60-99); PHOSPHORUS, SERUM 2.9 MG/DL (2.5-4.5); POTASSIUM, SERUM 3.2 MMOL/L (3.5-5.3); SODIUM, SERUM 136 MMOL/L (135-148)
[2017-04-03 05:06] LABS: BASOPHILS 0.6 %; BASOPHILS ABSOLUTE 0.06 10/3/uL (0.0-0.16); EOSINOPHILS 2.7 %; EOSINOPHILS ABSOLUTE 0.25 10/3/uL (0.0-0.53); HEMATOCRIT 43.9 % (40.0-51.0); HEMOGLOBIN 15.2 g/dL (13.6-17.8); IMMATURE GRANULOCYTES 0.2 %; IMMATURE GRANULOCYTES ABSOLUTE 0.02 10/3/uL (0.0-0.11); LYMPHOCYTES 31.2 %; LYMPHOCYTES ABSOLUTE 2.94 10/3/uL (0.67-4.30); MEAN CORPUS HGB CONC 34.6 g/dL (32.0-36.0); MEAN CORPUSCULAR HEMOGLOB 29.6 pg (26.0-34.0); MEAN CORPUSCULAR VOLUME 85.4 fL (80-100); MEAN PLATELET VOLUME 10.2 fL (9.2-13.0); MONOCYTES 13.1 %; MONOCYTES ABSOLUTE 1.24 10/3/uL (0.21-1.20); NEUTROPHILS 52.2 %; NEUTROPHILS ABSOLUTE 4.92 10/3/uL (2.02-8.40); PLATELET COUNT 177 10/3/uL (150-400); RBC DISTRIBUTION WIDTH 13.7 % (12.0-16.0); RED CELL COUNT 5.14 10/6/uL (4.7-6.1); WHITE BLOOD CELLS 9.4 10/3/uL (4.5-10.5)
[2017-04-03 05:09] LABS: MANUAL DIFF NO %
[2017-04-03 05:17] LABS: ALBUMIN 3.8 G/DL (3.5-5.0); BUN (BLOOD UREA NITROGEN) 39 MG/DL (6-23); CALCIUM, SERUM 9.2 MG/DL (8.5-10.4); CHLORIDE, SERUM 98 MMOL/L (96-112); CO2 (CARBON DIOXIDE) 33 MMOL/L (24-34); GFR AFRICAN AMERICAN 65 ML/MIN (>=60); GFR NON AFRICAN AMERICAN 56 ML/MIN (>=60); GLUCOSE, SERUM 174 MG/DL (60-99); PHOSPHORUS, SERUM 3.2 MG/DL (2.5-4.5); POTASSIUM, SERUM 3.2 MMOL/L (3.5-5.3); SODIUM, SERUM 138 MMOL/L (135-148)
[2017-04-03 11:17] LABS: ALBUMIN 3.9 G/DL (3.5-5.0); BUN (BLOOD UREA NITROGEN) 36 MG/DL (6-23); CALCIUM, SERUM 9.3 MG/DL (8.5-10.4); CHLORIDE, SERUM 97 MMOL/L (96-112); CO2 (CARBON DIOXIDE) 34 MMOL/L (24-34); CREATININE 1.41 MG/DL (0.70-1.30); GFR AFRICAN AMERICAN 65 ML/MIN (>=60); GFR NON AFRICAN AMERICAN 56 ML/MIN (>=60); GLUCOSE, SERUM 262 MG/DL (60-99); PHOSPHORUS, SERUM 2.4 MG/DL (2.5-4.5); POTASSIUM, SERUM 3.6 MMOL/L (3.5-5.3); SODIUM, SERUM 135 MMOL/L (135-148)
== END 2017-04-03 16:41 | disposition home or self-care (01) ==
LOC: SSU1 13:54 → 6NO 04-02 12:28
PROVIDERS: Internal Medicine Cardiovascular Disease; Internal Medicine Clinical Cardiac Electrophysiology; Internal Medicine Nephrology
DX: I13.0 Hypertensive heart and chronic kidney disease with heart failure and stage 1 through stage 4 chronic kidney disease, or unspecified chronic kidney disease (principal); E11.22 Type 2 diabetes mellitus with diabetic chronic kidney disease; N18.3 Chronic kidney disease, stage 3 (moderate); N17.9 Acute kidney failure, unspecified; I48.1 Persistent atrial fibrillation; I47.2 Ventricular tachycardia; E78.5 Hyperlipidemia, unspecified; I27.2 Other secondary pulmonary hypertension; G47.33 Obstructive sleep apnea (adult) (pediatric); E88.01 Alpha-1-antitrypsin deficiency; E66.9 Obesity, unspecified; E11.319 Type 2 diabetes mellitus with unspecified diabetic retinopathy without macular edema; I48.2 Chronic atrial fibrillation; I25.10 Atherosclerotic heart disease of native coronary artery without angina pectoris; Z88.8 Allergy status to other drugs, medicaments and biological substances; Z95.810 Presence of automatic (implantable) cardiac defibrillator
CPT/HCPCS: 76775; 80069; 81001; 82962; 83735; 84132; 85025; 93005; A9270-GY; G0378; G0379